=== PATIENT | male | born 1945 | race Caucasian/White ===

== ENCOUNTER 2017-12-03 13:15 | Outpatient (CLI) | payer MEDICARE ==
--- NOTE | 2017-12-03 15:28 | RAD ---
TWO VIEWS LUMBAR SPINE: Date: 12-03-17 History: Severe low back pain. Right hip pain for the past couple of weeks. Comparison: 04-14-16 FINDINGS: Again noted are multilevel osteophytes. There is mild narrowing of the L5-S1 intervertebral disc spac e. Vertebral body heights are within normal limits. There is no fracture or subluxation seen. Facet d egenerative changes are noted. Vascular calcifications are seen in the abdominal aortic and iliac art eries. There has been no interval change from prior exam. IMPRESSION: Degenerative changes of the lumbar spine. POS: [facility]
== END 2017-12-03 13:16 | disposition home or self-care (01) ==
LOC: SCSRAD 13:15
PROVIDERS: ATTEND Family Medicine
DX: M54.40 Lumbago with sciatica, unspecified side (principal); M47.896 Other spondylosis, lumbar region
CPT/HCPCS: 72100

== ENCOUNTER 2019-10-28 10:47 | Outpatient (CLI) | payer MEDICARE, OTHER ==
--- NOTE | 2019-10-28 11:13 | RAD ---
EXAM: Chest 2 views: HISTORY: Fluid retention COMPARISON: 03/09/2015 FINDINGS: There is a normal-sized cardiomediastinal silhouette. There is no evidence of consolidation, mass, or pleural effusion. Degenerative changes are seen in the spine. IMPRESSION: No evidence of acute cardiopulmonary disease
[2019-10-28 14:20] LABS: ALT (SGPT) 29 U/L (8-55); AST (SGOT) 19 U/L (5-34); Albumin 4.3 g/dL (3.4-4.8); Alkaline Phosphatase 59 U/L (40-110); Anion Gap 14 mmol/L (10-20); BUN (Urea Nitrogen) 18 mg/dL (8.4-25.7); Bilirubin, Total 0.7 mg/dL (0.2-1.2); Calc. Creatinine Clearance 0 mL/min (70-130); Calcium 9.2 mg/dL (7.8-10.44); Carbon Dioxide 27 mmol/L (23-31); Chloride 102 mmol/L (98-107); Estimated GFR-MDRD Greater than 90; Globulin 2.7 g/dL (2.4-3.5); Glucose 214 mg/dL (83-110); Potassium 4.4 mmol/L (3.5-5.1); Sodium 139 mmol/L (136-145)
== END 2019-10-28 10:48 | disposition home or self-care (01) ==
LOC: SCSRAD 10:47
PROVIDERS: ATTEND Family Medicine
DX: I10 Essential (primary) hypertension (principal); T78.40XS Allergy, unspecified, sequela; L30.9 Dermatitis, unspecified; R60.1 Generalized edema
CPT/HCPCS: 36415; 71046; 80053; 83880